=== PATIENT | male | born 1975 | race Hispanic/Latino ===

== ENCOUNTER 2025-07-01 23:30 | Emergency (ER) | payer OTHER ==
[~2025-07-01] VITALS: Ht 162.6 cm; Wt 68.5 kg
[2025-07-01 23:33] VITALS: TEMP 98.2
--- NOTE | 2025-07-01 23:42 | ERN ---
General Chief Complaint: Nosebleed Stated Complaint: C/O NOSEBLEED Time Seen by MD: 23:34 History of Present Illness Initial Comments 50-year-old male history of resistant hypertension follow up by Nephrology here for evaluation nosebleed. Patient states he was doing his normal routine when he felt lightheaded and was outside when he started having nosebleed. He tried to place tissues but continued to bleed thus he decided come to the emergency room for evaluation. Emergency he has not taken his blood pressure medications this evening. Allergies: Coded Allergies: No Known Allergies (Unverified Allergy, Unknown, 07/01/25) Past Medical History Past Medical History: Diabetes-Type II, Hypertension Past Surgical History: Other Physical Exam General Appearance: (+) no apparent distress Orientation: (+) alert, (+) oriented x 3 Head/Face Trauma: No Eye: bilateral eye normal inspection, bilateral eye PERRL, bilateral eye EOMI Ear, Nose, Throat: (+) hearing grossly normal, (+) normal ENT inspection, (+) moist mucous membraine Ear, Nose, Throat Comment Right-sided nares with dried blood. Neck: (+) normal inspection, (+) supple Respiratory: (+) chest non-tender, (+) lungs clear Heart: (+) regular; (-) murmur Back: (+) normal inspection Extremities: (+) normal range of motion, (+) non-tender MDM 50-year-old male here for evaluation of nosebleed. Hypertensive here but has not taken any of his blood pressure medications. We will allow him to take his blood pressure medications and reassess. Minimal active bleeding at this time with pressure Patient much improved at this time. We will discharge home. Advised on concerning signs and symptoms for which to return to the emergency room. We will have patient follow up with the PCP. Advised to take Afrin PRN. Direct pr essure as needed. No history of bleeding disorders. Thus we will discharge home on anticipatory guidelines. He is advised to follow up with the PCP and/or return to the ER if worsening symptoms. If he returns to us, he has aware that he might get a rhino rocket ED Course Orders Procedure Category Date Status Time Oxymetazoline Hcl PHA 07/01/25 Complete [place] (Afrin) 00:00 Current Medications Medications (Trade) Dose Ordered Sig/Wong Route PRN Reason Start Time Stop Time Status Last Admin Dose Admin Oxymetazoline HCl (AFrin) 1 sprays ONCE ONCE EN 07/01/25 00:00 07/01/25 23:45 DC 07/02/25 00:21 Vital Signs Date Time Temp Pulse Resp B/P (MAP) Pulse Ox O2 Delivery O2 Flow Rate FiO2 07/01/25 23:33 98.2 90 20 204/117 100 Room Air DX & DISP Disposition: Discharge Departure Impression: Primary Impression: Epistaxis Condition: Stable Scripts Oxymetazoline HCl (Afrin) 0.05 % [place] 2 SPRAY NS BID, #15 ML 0 Refills Prov: JIGNA PARTIDA MD 07/02/25 Referrals: NONE (PCP) JIGNA PARTIDA MD Jul 01, 2025 23:42
[2025-07-02] MEDS: OXYmetazoline HCL SPRAY 100 SPRAYS/15 ML BOTTLE EN ONE (00:21)
[2025-07-02] MEDS ORDERED: OXYM30SP27 NS (00:48)
[2025-07-02 02:01] VITALS: BP 181/98; PULSE 88; RESP 16; O2SAT 99
== END 2025-07-02 02:08 | disposition home or self-care (01) ==
LOC: EDH 23:30
DX: R04.0 Epistaxis (principal); I10 Essential (primary) hypertension; R42 Dizziness and giddiness; E11.9 Type 2 diabetes mellitus without complications
CPT/HCPCS: 99283